=== PATIENT | female | born 1975 | race African-American/Black ===

== ENCOUNTER 2022-03-29 06:18 | Inpatient (IN) ==
[2022-03-23 11:08] LABS: Basophils % 0.3 % (0.0-0.8); Eosinophils % 0.8 % (0.00-10.9); Hematocrit 37.6 VOL% (35.7-47.0); Hemoglobin 12.1 GM/DL (12.0-16.0); Immature Granulocytes % 0.3 %; Immature Granulocytes Absolute 0.01 #; Lymphocytes # 1.2 10*3/uL (1.4-4.0); Lymphocytes % 32.2 % (21.3-54.2); Mean Corpuscular HGB Conc 32.2 GM/DL (32-36); Mean Platelet Volume 9.2 FL (9.6-12.0); Monocytes # 0.3 10*3/uL (0.11-0.8); Monocytes % 8.6 % (1.7-12.7); Neutrophils % 57.8 % (38.7-73.9); Platelet Count 321 T/CUMM (130-400); Red Blood Count 4.18 MC/CUMM (3.8-5.5); Red Cell Distribution Width 16.6 % (9.3-17.3); White Blood Count 3.8 T/CUMM (4-12)
[2022-03-23 11:18] LABS: Calcium 9.6 MG/DL (8.5-10.1); Osmolality,Calculated 275.5 MOS/KG (273-304); Potassium 4.5 MMOL/L (3.5-5.1)
[~2022-03-29 06:18] MED LIST: ALVIMOPAN 12 MG CAPSULE PO ONE; ERTAPENEM 1,000 MG in SODIUM CHLORIDE 0.9% 100 ML IV ONE; LACTATED RINGERS 1,000 ML IV SCH
[2022-03-29] MEDS ORDERED: ONDANSETRON 4 MG/2 ML VIAL ONE ×3 (08:21→11:55)
[2022-03-29] MEDS ORDERED: DEXAMETHASONE 4 MG/1 ML VIAL ONE ×2 (08:21→09:02)
[2022-03-29] MEDS ORDERED: fentaNYL 100 MCG/2 ML VIAL ONE (08:21)
[2022-03-29] MEDS ORDERED: SEVOFLURANE 1 UNIT/15 MINUTE INH ONE ×7 (08:21→10:35)
[2022-03-29] MEDS ORDERED: propofoL 200 MG/20 ML VIAL IV ONE (08:21)
[2022-03-29] MEDS ORDERED: LIDOCAINE 2% 5 ML VIAL ONE (08:21)
[2022-03-29] MEDS ORDERED: ROCURONIUM 50 MG/5 ML VIAL IV ONE (08:21)
[2022-03-29] MEDS ORDERED: ACETAMINOPHEN INJ 1,000 MG/100 ML VIAL IV ONE (08:22)
[2022-03-29] MEDS ORDERED: MIDAZOLAM 2 MG/2 ML VIAL ONE (08:22)
[2022-03-29] MEDS ORDERED: KETOROLAC 30 MG/1 ML VIAL ONE (08:22)
[2022-03-29] MEDS ORDERED: TISSUE ADHESIVE 1 EACH APPLICATOR TOP ONE (08:40)
[2022-03-29] MEDS ORDERED: LIDOCAINE 1%/EPI INJ 20 ML VIAL ONE (08:40)
[2022-03-29] MEDS ORDERED: BUPIVACAINE MPF 0.25% 10 ML VIAL ONE (08:40)
[2022-03-29] MEDS ORDERED: GABAPENTIN 400 MG CAPSULE PO ONE (08:41)
[2022-03-29] MEDS ORDERED: FAMOTIDINE 20 MG TABLET PO ONE (08:41)
[2022-03-29] MEDS ORDERED: DIAZEPAM 5 MG TABLET PO ONE (08:41)
[2022-03-29] MEDS ORDERED: PHENYLEPHRINE 1 MG/10 ML SYRINGE IV ONE ×3 (09:23→10:33)
[2022-03-29] MEDS ORDERED: LACTATED RINGERS 1,000 ML IV ONE (09:31)
[2022-03-29] MEDS ORDERED: SODIUM CHLORIDE 0.9% 100 ML IV ONE (09:31)
[2022-03-29] MEDS ORDERED: ePHEDrine 50 MG/ML VIAL ONE (09:48)
[2022-03-29] MEDS ORDERED: NEOSTIGMINE 10 MG/10 ML VIAL ONE (10:48)
[2022-03-29] MEDS ORDERED: GLYCOPYRROLATE 0.4 MG/2 ML VIAL ONE (10:48)
[2022-03-29] MEDS ORDERED: MEPERIDINE 25 MG/1 ML VIAL ONE (11:55)
[2022-03-29] MEDS ORDERED: MEPERIDINE 25 MG/1 ML VIAL IV PRN (12:00)
[2022-03-29] MEDS ORDERED: ONDANSETRON 4 MG/2 ML VIAL IV PRN (12:00)
[2022-03-29] MEDS ORDERED: HYDROmorphone 1 MG/1 ML SYRINGE IV PRN (12:55)
[2022-03-29] MEDS ORDERED: oxyCODONE/ACETAMINOPHEN 5-325 MG TABLET PO PRN (12:55)
[2022-03-29 13:20] LABS: Basophils % 0.1 % (0.0-0.8); Eosinophils % 0.1 % (0.00-10.9); Hematocrit 35.5 VOL% (35.7-47.0); Hemoglobin 11.7 GM/DL (12.0-16.0); Immature Granulocytes % 0.3 %; Immature Granulocytes Absolute 0.02 #; Lymphocytes # 0.5 10*3/uL (1.4-4.0); Lymphocytes % 7.8 % (21.3-54.2); Mean Platelet Volume 9.1 FL (9.6-12.0); Monocytes # 0.1 10*3/uL (0.11-0.8); Neutrophils % 89.7 % (38.7-73.9); Platelet Count 262 T/CUMM (130-400); Red Blood Count 3.99 MC/CUMM (3.8-5.5); Red Cell Distribution Width 16.1 % (9.3-17.3); White Blood Count 6.8 T/CUMM (4-12)
[2022-03-29 13:37] LABS: Calcium 8.8 MG/DL (8.5-10.1); Osmolality,Calculated 275.5 MOS/KG (273-304); Potassium 3.7 MMOL/L (3.5-5.1)
[2022-03-29] MEDS: LACTATED RINGERS 1,000 ML IV SCH ×2 (13:43→21:23)
[2022-03-29] MEDS: traMADol 50 MG TABLET PO SCH ×3 (13:43→23:55)
[2022-03-29] MEDS: KETOROLAC 30 MG/1 ML VIAL IV SCH ×3 (13:43→23:55)
[2022-03-29] MEDS: GABAPENTIN 300 MG CAPSULE PO SCH (21:23)
[2022-03-29] MEDS: ALVIMOPAN 12 MG CAPSULE PO SCH (21:23)
[2022-03-30] MEDS: traMADol 50 MG TABLET PO SCH (06:13)
[2022-03-30 06:14] LABS: Basophils % 0.3 % (0.0-0.8); Eosinophils % 0.3 % (0.00-10.9); Hematocrit 31.8 VOL% (35.7-47.0); Hemoglobin 10.3 GM/DL (12.0-16.0); Immature Granulocytes % 0.4 %; Immature Granulocytes Absolute 0.03 #; Lymphocytes # 1.1 10*3/uL (1.4-4.0); Lymphocytes % 15.1 % (21.3-54.2); Mean Corpuscular HGB Conc 32.4 GM/DL (32-36); Mean Corpuscular Volume 89.3 FL (87-102); Monocytes # 0.8 10*3/uL (0.11-0.8); Monocytes % 10.6 % (1.7-12.7); Neutrophils % 73.3 % (38.7-73.9); Platelet Count 268 T/CUMM (130-400); Red Blood Count 3.56 MC/CUMM (3.8-5.5); Red Cell Distribution Width 16.2 % (9.3-17.3); White Blood Count 7.2 T/CUMM (4-12)
[2022-03-30] MEDS: KETOROLAC 30 MG/1 ML VIAL IV SCH (06:15)
[2022-03-30 06:32] LABS: Osmolality,Calculated 280.1 MOS/KG (273-304)
[2022-03-30 07:44] VITALS: BP 105/77
[2022-03-30] MEDS: LACTATED RINGERS 1,000 ML IV SCH (08:16)
[2022-03-30] MEDS ORDERED: amLODIPine 5 MG TABLET PO SCH (09:00)
[2022-03-30] MEDS ORDERED: DOCUSATE SODIUM 100 MG CAPSULE PO SCH (09:00)
[2022-03-30] MEDS ORDERED: FERROUS SULFATE 325 MG TABLET PO SCH (09:00)
[2022-03-30] MEDS ORDERED: ENOXAPARIN 40 MG/0.4 ML SYRINGE SUBCUT SCH (09:00)
[2022-03-30] MEDS ORDERED: ASCORBIC ACID 500 MG TABLET PO SCH (09:00)
[2022-03-30] MEDS: GABAPENTIN 300 MG CAPSULE PO SCH (09:19)
[2022-03-30] MEDS: ALVIMOPAN 12 MG CAPSULE PO SCH (09:19)
[2022-04-05] MEDS ORDERED: ERGOCALCIFEROL 50,000 UNIT CAPSULE PO SCH (09:00)
== END 2022-03-30 11:30 | disposition home or self-care (01) | DRG 330 ==
LOC: N.OR 06:18 → N.SDSINP 06:18 → N.3E 06:18 → N.SDSINP 06:19 → MERGE 11:00 → EDSDCBED 11:24 → N.3E 11:26 → N.SDSINP 11:26 → N.3E 12:50
PROVIDERS: ADMIT Surgery; ATTEND Surgery